=== PATIENT | male | born 1970 | race Caucasian/White ===

== ENCOUNTER → 2017-04-19 | Day surgery (SDC) | payer BC ==
[~2017-04-19] VITALS: Ht 182.9 cm; Wt 76.2 kg
[~2017-04-19] MED LIST: HYDROCODON-ACE1 EAC5 PO; PROVENTIL HFA 61 INH INH; SPIRIVA18 MCG INH; SYMBICORT 16010.2 GM INH; TRINTELLIX PO; ZANTAC300 MG PO
== END | disposition home or self-care (01) ==
LOC: OR 08:34
PROVIDERS: Surgery
PROC: 0JB10ZZ Excision of Face Subcutaneous Tissue and Fascia, Open Approach (ICD-10-PCS; 2017-04-19)
PROC: 0JQ10ZZ Repair Face Subcutaneous Tissue and Fascia, Open Approach (ICD-10-PCS; principal; 2017-04-19 11:30)
DX: L72.0 Epidermal cyst (principal); K21.9 Gastro-esophageal reflux disease without esophagitis; M19.90 Unspecified osteoarthritis, unspecified site; J44.9 Chronic obstructive pulmonary disease, unspecified; G89.29 Other chronic pain; F17.210 Nicotine dependence, cigarettes, uncomplicated; Z79.891 Long term (current) use of opiate analgesic; Z79.899 Other long term (current) drug therapy; Z98.1 Arthrodesis status
CPT/HCPCS: J0690; J2250; J3010; J7030; J7120